=== PATIENT | male | born 1960 | race Caucasian/White ===

== ENCOUNTER 2020-04-18 02:57 | Inpatient (IN) | payer BC ==
[~2020-04-18] VITALS: Ht 175.3 cm; Wt 74.2 kg
[~2020-04-18 02:57] MED LIST: AMLO-187 PO; CIME400T PO; VALS1TAB22 PO
--- NOTE | 2020-04-18 03:20 | PHYS DOC ---
Past History Past Medical History: Hypertension Past Surgical History: No Surgical History Alcohol Use: Occasionally Drug Use: None Adult General Chief Complaint Chief Complaint: ABDOMINAL PAIN HPI HPI Patient is a 60-year-old male, with a past medical history significant for alcoholism and pancreatitis presents to the emergency department with 2 weeks of off-and-on lower abdominal pain, 8 out of 10 at worst, with no radiation, mild nausea with no emesis and associated with dark watery stools. States that all of his bowel movements, especially over the last few days have been like water. States that he quit drinking alcohol 2 weeks ago, and has had decrease in appetite as well. States over the last couple of days it has been bad with 5-6 episodes of black diarrhea a day. States he feels really fatigued but denies headache, chest pain, shortness of breath, dysuria, hematuria. Denies any numbness/weakness/tingling, confusion or slurred speech. Denies any recent travel, known ill contacts, fevers, sore throat/runny nose, cough. Review of Systems Review of Systems Review of systems otherwise unremarkable except noted in HPI Current Medications Current Medications Current Medications Medications (Trade) Dose Ordered Sig/Dyan Start Time Stop Time Status Last Admin Dose Admin Lactated Ringer's 1,000 ml @ 1,000 mls/hr 1X ONCE 04/18/20 03:30 04/18/20 04:29 Morphine Sulfate (Morphine 4mg Syringe) 4 mg 1X ONCE 04/18/20 03:30 04/18/20 03:31 Ondansetron HCl (Zofran) 4 mg 1X ONCE 04/18/20 03:30 04/18/20 03:31 Allergies Allergies Allergies Coded Allergies Type Severity Reaction Last Updated Verified iodine Allergy Severe Swelling 07/04/14 Yes ibuprofen Allergy Intermediate Swelling 07/04/14 Yes Physical Exam Physical Exam Constitutional: Well developed, well nourished, no acute distress, appears ill, diaphoretic and tacky HENT: Normocephalic, atraumatic, bilateral external ears normal, oropharynx moist, no oral exudates, nose normal. [] Eyes: PERRLA, conjunctiva normal, no discharge. [] Neck: Normal range of motion, no tenderness Cardiovascular:Heart rate regular rhythm, no murmur [] Lungs & Thorax: Bilateral breath sounds clear to auscultation [] Abdomen: soft, generalized tenderness, worse across lower abdomen, no guarding, some rebound tenderness, no masses, no pulsatile masses. [] Skin: Warm, sweaty, no erythema, no rash. [] Back: No tenderness, Extremities: No tenderness, no cyanosis, no clubbing, ROM intact, no edema. [] Neurologic: Alert and oriented X 3, normal motor function, normal sensory function, no focal deficits noted. [] Psychologic: Affect normal, judgement normal, mood normal. [] EKG EKG Rate of 95, QRS of 94, QTc of 473, no STEMI [] Radiology/Procedures Radiology/Procedures []IMPRESSION: Distended colon with areas of wall thickening and mucosal hyperemia, concerning for an infectious or inflammatory colitis. Electronically signed by: Bryson Chaves MD (04/18/2020 4:08 AM) [facility] Heart Score C/O Chest Pain: No Risk Factors: Risk Factors: DM, Current or recent (<one month) smoker, HTN, HLP, family history of CAD, obesity. Risk Scores: Risk Factors: DM, Current or recent (<one month) smoker, HTN, HLP, family history of CAD, obesity. Course & Med Decision Making Course & Med Decision Making Patient is a 60-year-old male with a past medical history of alcoholism, 2 weeks out from his last drink who presents with lower abdominal pain, and dark black diarrhea Vital signs with heart rate in the 90s, soft blood pressures at 94/50 after 1 liter resuscitation, respiratory rate in the low 20s satting 95% on room air. Patient looks ill. CT of the abdomen pelvis without contrast obtained due to patient's allergy significant air in the large bowel concerning for infectious versus inflammatory colitis. Blood cultures obtained. Started on Rocephin and Flagyl in the ED. Continued IV fluid resuscitation. Laboratory analysis notable for neutrophilic leukocytosis with bandemia, lactate of 4.4, hypochloremia, hypokalemia, hyponatremia Discussed all findings with family and recommended admission for continued evaluation and treatment. Family grateful, verbalized understanding and agreed with plan of admission. Dragon Disclaimer Dragon Disclaimer This electronic medical record was generated, in whole or in part, using a voice recognition dictation system. Departure Departure: Impression: Primary Impression: Abdominal pain Additional Impressions: Colitis Sepsis Lactic acidosis Disposition: ADMITTED INPT THIS HOSP Admitting Physician: Juliana Rivers Condition: IMPROVED Referrals: RASHAWN ALEXIS (PCP) Problem Qualifiers IVY SILVA MD Apr 18, 2020 03:20
[2020-04-18] MEDS ORDERED: MORPHINE SULFATE 4 MG/ML DISP.SYRIN. IV ONE (03:30)
[2020-04-18] MEDS ORDERED: IV RINGERS SOLUTION,LACTATED 1,000 ML IV ONE ×2 (03:30→04:30)
[2020-04-18] MEDS ORDERED: ONDANSETRON PF 4 MG/2 ML VIAL. IVP ONE (03:30)
--- NOTE | 2020-04-18 03:40 | EKG ---
[address] [address] Test Date: 2020-04-18 Test Time: 03:31:36 Pat Name: RAFAELA LEDESMA Department: Room: Gender: M [employer] Agent: JOEY : 1960 Requested By: IVY SILVA Order Number: [id number] Reading MD: Measurements Intervals [place] Rate: 95 P: 51 SC: 136 QRS: -9 QRSD: 94 T: 40 QT: 374 QTc: 473 Interpretive Statements SINUS RHYTHM LEFTWARD AXIS PROLONGED QT NO SPECIFIC ECG ABNORMALITIES RI6.02 Compared to ECG 04/18/2020 03:30:33 No significant changes
[2020-04-18 03:41] LABS: BASO % 0 % (0-3); EOS % 0 % (0-3); HEMATOCRIT 41.2 % (39.0-53.0); LYMPH # 0.5 x10^3/uL (1.0-4.8); LYMPH % 4 % (24-48); MEAN CORPUSCULAR HEMOGLOBIN 32 pg (25-35); MEAN CORPUSCULAR HGB CONC 34 g/dL (31-37); MEAN CORPUSCULAR VOLUME 94 fL (79-100); MONO % 0 % (0-9); NEUT # 12.8 x10^3uL (1.8-7.7); NEUT % 96 % (31-73); PLATELET COUNT 434 x10^3/uL (140-400); RED CELL DISTRIBUTION WIDTH 13.5 % (11.5-14.5); WHITE BLOOD COUNT 13.4 x10^3/uL (4.0-11.0)
[2020-04-18] MEDS ORDERED: PANTOPRAZOLE IV 40 MG VIAL. IVP ONE (04:00)
[2020-04-18 04:01] LABS: ALBUMIN 1.9 g/dL (3.4-5.0); ALBUMIN/GLOBULIN RATIO 0.5 (1.0-1.7); CALCIUM 7.9 mg/dL (8.5-10.1); GFR 41.2; TOTAL BILIRUBIN 0.8 mg/dL (0.2-1.0); TOTAL PROTEIN 6.1 g/dL (6.4-8.2)
--- NOTE | 2020-04-18 04:10 | RAD ---
CT ABDOMEN+PELVIS WO INDICATION: lower abdominal apain. H/O pancreatitis and GI bleed EXAM: Noncontrast CT of the abdomen and pelvis. Coronal and sagittal reformatted images were perform ed. PQRS compliance statement: One or more of the following individualized dose reduction techniques were utilized for this examinat ion: 1. Automated exposure control 2. Adjustment of the mA and/or kV according to patient size 3. Use of iterative reconstruction technique COMPARISON: 07/04/1949 FINDINGS: No free air, free fluid, or fluid collection. Lower chest: The visualized lower lungs are aerated. No pleural or pericardial effusion. ABDOMEN: Liver: The noncontrast liver is homogeneous in attenuation. Gallbladder and biliary: Normal gallbladder without radiopaque stone. Normal caliber bile ducts. Spleen: Normal spleen. Pancreas: The noncontrast pancreas is homogeneous in attenuation without peripancreatic inflammatory changes. Adrenal glands: Stable left adrenal thickening. Kidneys and ureters: No opaque urinary calculi. Normal kidneys and ureters. GI tract: Normal stomach. Normal caliber small bowel. Distention of the ascending and transverse colo n with wall thickening and mucosal hyperemia. Less pronounced wall thickening extends down through th e sigmoid. Vascular structures: Normal caliber abdominal aorta. Lymph nodes: No lymphadenopathy in the abdomen or pelvis. PELVIS: Genitourinary system: Normal bladder. SKELETAL STRUCTURES AND SOFT TISSUES: Degenerative changes of the spine. IMPRESSION: Distended colon with areas of wall thickening and mucosal hyperemia, concerning for an infectious or inflammatory colitis. Electronically signed by: Bryson Chaves MD (04/18/2020 4:08 AM) [facility]
[2020-04-18] MEDS ORDERED: PIPERACILLIN/TAZOBACTAM 4.5 GM in IV NORMAL SALINE 50ML 50 ML IV ONE (04:15)
[2020-04-18 04:17] LABS: % BANDS 34 % (0-9); % LYMPHS 1 % (24-48); % MONOS 4 % (0-10); % SEGS 61 % (35-66)
[2020-04-18 04:18] LABS: PLT ESTIMATE INCREASED (ADEQUATE)
[2020-04-18 04:22] LABS: CREATININE 1.7 mg/dL (0.7-1.3)
[2020-04-18] MEDS ORDERED: cefTRIAXone SODIUM 1 GM VIAL ONE (04:27)
[2020-04-18] MEDS ORDERED: IV NORMAL SALINE 50ML 50 ML ONE (04:27)
--- NOTE | 2020-04-18 05:30 | NUR ---
Admission Note: Pt transported via EMS from ED to ICU room 6, pt transferred from cart to bed independently, VSS, no c/o pain or n/v at this time, pt states "I just don't feel good". Pt oriented to room, call light, and safety precautions. Pt requested to be moved to a room w/a bathroom, adv pt we could discuss w/dayshift.
[2020-04-18 05:45] VITALS: BP 103/58
[2020-04-18] MEDS ORDERED: MORPHINE SULFATE 4 MG/ML DISP.SYRIN. ONE (09:32)
[2020-04-18] MEDS: MORPHINE SULFATE 4 MG/ML DISP.SYRIN. IV PRN ×4 (09:34→21:07)
[2020-04-18] MEDS: ONDANSETRON PF 4 MG/2 ML VIAL. IVP PRN ×4 (09:34→22:18)
[2020-04-18] MEDS: POTASSIUM CL 40MEQ IN 0.9%NACL 1,000 ML IV SCH ×2 (09:37→19:30)
[2020-04-18 11:00] VITALS: BP 98/61
[2020-04-18 13:49] LABS: BILIRUBIN,URINE NEG (NEG); CLARITY,URINE CLEAR; COLOR,URINE YELLOW; GLUCOSE,URINE NEG (NEG); NITRITE,URINE NEG (NEG); UROBILINOGEN,URINE 0.2 mg/dL (0.2 mg/dL)
[2020-04-18 13:59] LABS: BACTERIA,URINE 0 /HPF (0-FEW); RBC,URINE RARE /HPF (0-2); WBC,URINE 0 /HPF (0-4)
[2020-04-18 14:16] LABS: FECAL OB PT NEGATIVE (NEG)
[2020-04-18 14:57] LABS: CALCIUM 7.4 mg/dL (8.5-10.1); CREATININE 1.4 mg/dL (0.7-1.3); GFR 51.5
[2020-04-18 14:59] LABS: POTASSIUM 2.9 mmol/L (3.5-5.1)
[2020-04-18 15:00] VITALS: BP 104/59
[2020-04-18] MEDS ORDERED: POTASSIUM CHLORIDE 20 MEQ TABLET.ER. PO ONE (15:32)
[2020-04-18] MEDS: POTASSIUM CHLORIDE 20 MEQ TABLET.ER. PO SCH ×3 (15:55→18:37)
[2020-04-18] MEDS ORDERED: IV NORMAL SALINE 1,000ML 1,000 ML IV ONE (16:00)
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
[2020-04-18 19:00] VITALS: BP 93/60
[2020-04-18 20:22] LABS: CALCIUM 7.1 mg/dL (8.5-10.1); CREATININE 1.3 mg/dL (0.7-1.3); GFR 56.1; POTASSIUM 3.7 mmol/L (3.5-5.1)
[2020-04-19] MEDS: POTASSIUM CL 40MEQ IN 0.9%NACL 1,000 ML IV SCH ×2 (00:06→10:57)
[2020-04-19] MEDS: MORPHINE SULFATE 4 MG/ML DISP.SYRIN. IV PRN ×4 (01:25→17:03)
[2020-04-19] MEDS: ONDANSETRON PF 4 MG/2 ML VIAL. IVP PRN ×2 (05:57→11:52)
[2020-04-19 06:03] VITALS: BP 103/58
[2020-04-19 06:34] LABS: HEMATOCRIT 34.9 % (39.0-53.0); HEMOGLOBIN 11.7 g/dL (13.0-17.5); RED BLOOD COUNT 3.63 x10^6/uL (4.30-5.70); RED CELL DISTRIBUTION WIDTH 13.4 % (11.5-14.5); WHITE BLOOD COUNT 12.8 x10^3/uL (4.0-11.0)
[2020-04-19 06:54] LABS: ALBUMIN 1.4 g/dL (3.4-5.0); ALBUMIN/GLOBULIN RATIO 0.4 (1.0-1.7); CALCIUM 7.4 mg/dL (8.5-10.1); CREATININE 1.3 mg/dL (0.7-1.3); GFR 56.1; POTASSIUM 4.7 mmol/L (3.5-5.1); TOTAL BILIRUBIN 0.5 mg/dL (0.2-1.0); TOTAL PROTEIN 5.2 g/dL (6.4-8.2)
[2020-04-19] MEDS ORDERED: PANTOPRAZOLE 40 MG TABLET. PO SCH (07:30)
[2020-04-19] MEDS ORDERED: amLODIPine BESYLATE 10 MG TABLET PO SCH (09:00)
[2020-04-19 11:00] VITALS: BP 98/56
--- NOTE | 2020-04-19 14:18 | PN ---
DATE: 04/19/2020 SUBJECTIVE: The patient is resting, slightly propped up in bed, in no apparent distress. He continues to complain of abdominal cramping, has had diarrhea. He has had about 3 episodes of loose bowel movement since yesterday evening. Denied any fever, chills, or rigors. Denied any dizziness, lightheadedness, or vertigo. PHYSICAL EXAMINATION: GENERAL: When I examined him this afternoon, he definitely seemed to be more awake, alert, generally looks better. He looked pale, but no jaundice, cyanosis, or thyromegaly. No jugular venous distension. No limb edema. VITAL SIGNS: His heart rate was 85, blood pressure was 98/56, temperature was 98.5, respiratory rate was 17, and oxygen saturation was 95%. HEAD, EYES, EARS, NOSE, AND THROAT: Showed normocephalic, atraumatic. NECK: Supple. HEART: Showed normal first and second heart sounds. No gallop or murmur. CHEST: Showed central trachea. Equal bilateral chest expansion, air entry, vesicular sounds. No crepitation and no rhonchi. ABDOMEN: Markedly distended. Tenderness mostly in the right epigastric and right upper quadrant as well as right flank area. There is no guarding or rigidity. No organomegaly. All hernial orifice intact. Bowel sounds normal. NEUROLOGIC: He is awake, alert, responding appropriately. All cranial nerves are intact. He moves extremities without difficulty. His intake was 2100, no output was recorded. LABORATORY DATA: As of this morning, his white cell count was 12,800, hemoglobin 11.7, hematocrit 34, MCV 96, and platelet count 220,000. His serum sodium was 133, potassium 4.7, chloride 104, bicarbonate 19, and anion gap of 10, BUN 28, creatinine 1.3, estimated GFR was 56 mL per minute. His glucose 122, calcium was 7.4, magnesium 2. Total bilirubin, AST, ALT, and alkaline phosphatase were normal. His total protein was 5.2, albumin was 1.4. His stool for occult blood was negative. His blood cultures are so far negative. ASSESSMENT: Likely infectious versus inflammatory colitis. PLAN: Plan is to continue with IV Levaquin and IV Flagyl. His hypokalemia has resolved. His stool for occult blood was negative; however, the enteric panel was still pending at the time of this dictation. The patient continued to have pain, diarrhea, and his abdomen seemed to be more distended and given that the distention of the ascending and transverse colon with wall thickness and mucosal hyperemia, there is less pronounced wall thickening that extends down through the sigmoid, I will arrange to repeat his CT scan of the abdomen and pelvis; and depending on the finding, we might transfer him to [facility] to get the Gastroenterology on board in case this is an inflammatory bowel disease rather than infectious colitis. NEO RAMOS MD DR: ROSALIO/ralph JOB#: [id number] / [id number]
--- NOTE | 2020-04-19 14:46 | RAD ---
EXAM: Abdomen and pelvis CT without intravenous contrast. HISTORY: Pain and distention. TECHNIQUE: Computed tomographic images of the abdomen and pelvis were obtained without contrast. Mult iplanar reformatting was performed. *One or more of the following individualized dose reduction techniques were utilized for this examina tion: 1. Automated exposure control. 2. Adjustment of the mA and/or kV according to patient size. 3. Use of iterative reconstruction technique. COMPARISON: 04/18/2020. FINDINGS: Evaluation of the lower thorax demonstrates new trace bilateral pleural effusions. There is partial medial right lower lobe consolidation with air bronchograms. The superimposed on bilateral b asilar atelectasis and suspected interstitial infiltrate. There is also lingular atelectasis or inter stitial infiltrate. There is stable trace pericardial fluid. There is left gynecomastia. No hepatic lesion is seen. The gallbladder, pancreas, spleen and stomach are unremarkable. There is d iffuse thickening of the left adrenal gland, without a discrete nodule. There is no nephrolithiasis o r hydronephrosis. There is no appendicitis. There has been interval increase in a distended air and f luid-filled colon and circumferential colonic wall thickening with pericolonic stranding. There is re lative decompression of the sigmoid colon and rectum. There is no pneumatosis. The aorta is normal in caliber. There are stable nonspecific mesenteric and retroperitoneal lymph nod es. There is no suspicious osseous lesion. There is a small sebaceous cyst within the right buttock. IMPRESSION: 1. Increase in distended air and fluid-filled colon with superimposed circumferential colonic wall th ickening and pericolonic stranding due to acute colitis. The differential includes infectious and inf lammatory etiologies. No obstruction or pneumatosis seen. 2. New partially consolidated right lower lobe infiltrate superimposed on bilateral lower lobe shows infiltrate, atelectasis and trace pleural effusions. Electronically signed by: Quin Cabral MD (04/19/2020 2:44 PM) [id number]
[2020-04-19 15:00] VITALS: BP 96/54
--- NOTE | 2020-04-19 19:28 | NUR ---
POST CT SCAN DR RAMOS RECOMMENDED THE PATIENT BE TRANSFERRED TO [facility] FOR FURTHER EVALUATION. PATIENT NEEDS A GI CONSULT DUE TO WORSENING CT SCAN RESULTS. PATIENT WAS IN AGREEMENT TO TRANSFER. PATIENT WILL BE TRANSFERRED TO ROOM 663. REPORT WAS CALLED TO MATT MULLEN. EMS WAS CALLED. EMS ARRIVED TO THE UNIT AND PATIENT LEFT THE UNIT VIA GURNEY ESCORTED BY EMS PERSONNEL.
== END 2020-04-19 18:30 | disposition short-term general hospital (02) | DRG 872 ==
LOC: ER 02:57 → ICU 04:42
PROVIDERS: ADMIT Internal Medicine; ATTEND Internal Medicine
DX: A41.9 Sepsis, unspecified organism (principal); E87.1 Hypo-osmolality and hyponatremia; N17.9 Acute kidney failure, unspecified; E86.0 Dehydration; F17.200 Nicotine dependence, unspecified, uncomplicated; I10 Essential (primary) hypertension; K52.9 Noninfective gastroenteritis and colitis, unspecified; Z80.8 Family history of malignant neoplasm of other organs or systems; Z82.49 Family history of ischemic heart disease and other diseases of the circulatory system; F10.20 Alcohol dependence, uncomplicated; K21.9 Gastro-esophageal reflux disease without esophagitis; Z88.8 Allergy status to other drugs, medicaments and biological substances; E87.6 Hypokalemia
CPT/HCPCS: 36415; 74176; 80048; 80053; 81001; 82274; 83605; 83690; 83735; 84484; 85007; 85025; 85027; 85610; 86850; 86900; 86901; 87040; 87505; 93005; 96361; 96365; 96368; 96375; C9113; J0696; J1956; J2270; J2405; J3490; J7120; 99285-25; J7030

== ENCOUNTER 2020-09-06 10:41 | Emergency (ER) | payer OTHER, BC ==
[~2020-09-06] VITALS: Ht 175.3 cm; Wt 60.2 kg
[~2020-09-06 10:41] MED LIST changes: -VALS1TAB22 PO; +VALS1TAB23 PO
[2020-09-06 10:52] VITALS: BP 153/103
[2020-09-06] MEDS ORDERED: ACETAMINOPHEN 325 MG TABLET PO ONE (11:00)
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
== END 2020-09-06 12:08 | disposition home or self-care (01) ==
LOC: ER 10:41
DX: M54.5 Low back pain (principal); M54.6 Pain in thoracic spine; M79.652 Pain in left thigh; M25.561 Pain in right knee; I10 Essential (primary) hypertension; F10.20 Alcohol dependence, uncomplicated; Z88.6 Allergy status to analgesic agent; Z88.8 Allergy status to other drugs, medicaments and biological substances; Y90.9 Presence of alcohol in blood, level not specified
CPT/HCPCS: 72072; 72100; 73552; 73562; 99284

== ENCOUNTER 2021-04-18 10:07 | Emergency (ER) | payer BC, OTHER ==
[~2021-04-18] VITALS: Ht 175.3 cm; Wt 59.0 kg
[2021-04-18] MEDS: IV NORMAL SALINE 1,000ML 1,000 ML IV ONE (11:15)
[2021-04-18] MEDS: ACETAMINOPHEN 500 MG TABLET PO ONE (11:15)
--- NOTE | 2021-04-18 11:21 | EKG ---
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
[2021-04-18] MEDS ORDERED: IOHEXOL 240 MG/ML 50ML VIAL. PO ONE (11:30)
[2021-04-18] MEDS ORDERED: IOHEXOL 300 MG/ML 75 ML VIAL. IV ONE (11:30)
[2021-04-18 11:38] LABS: BASO % 1 % (0-3); EOS % 0 % (0-3); HEMATOCRIT 34.9 % (39.0-53.0); HEMOGLOBIN 12.6 g/dL (13.0-17.5); LYMPH # 0.8 x10^3/uL (1.0-4.8); LYMPH % 14 % (24-48); MEAN CORPUSCULAR HEMOGLOBIN 33 pg (25-35); MEAN CORPUSCULAR HGB CONC 36 g/dL (31-37); MEAN CORPUSCULAR VOLUME 93 fL (79-100); MONO # 0.9 x10^3/uL (0.0-1.1); MONO % 15 % (0-9); NEUT # 4.1 x10^3uL (1.8-7.7); NEUT % 71 % (31-73); PLATELET COUNT 291 x10^3/uL (140-400); RED BLOOD COUNT 3.77 x10^6/uL (4.30-5.70); RED CELL DISTRIBUTION WIDTH 13.4 % (11.5-14.5); WHITE BLOOD COUNT 5.8 x10^3/uL (4.0-11.0)
[2021-04-18 12:41] LABS: ALBUMIN 3.9 g/dL (3.4-5.0); ALBUMIN/GLOBULIN RATIO 1.1 (1.0-1.7); CALCIUM 9.1 mg/dL (8.5-10.1); GFR 75.7; TOTAL BILIRUBIN 1.3 mg/dL (0.2-1.0); TOTAL PROTEIN 7.3 g/dL (6.4-8.2)
--- NOTE | 2021-04-18 12:51 | RAD ---
PQRS Compliance Statement: One or more of the following individualized dose reduction techniques were utilized for this examinat ion: 1. Automated exposure control 2. Adjustment of the mA and/or kV according to patient size 3. Use of iterative reconstruction technique CT ABDOMEN+PELVIS WO Clinical Indication: Reason: generalized abd pain, h/o ileostomy / Spl. Instructions: PT HAS IODINE A LLERGY, HAVE PT DRINK H2O, PER ER MD / History: Comparison: CT abdomen and pelvis without contrast April 19, 2020. Findings: Minimal bilateral dependent atelectasis. Small pericardial effusion. Coronary artery disease. Cardiac size is normal. Mild right inferior perihepatic ascites. The liver, gallbladder, spleen, and pancreas are normal. The re is adrenal gland hyperplasia, severe on the left. Mild calcification of the abdominal aorta, no an eurysm. There is a 2 mm nonobstructing right renal calculus. No hydronephrosis is seen. Since the prior study there has been subtotal colectomy. There is right lower abdomen ileostomy. The configuration of the stomach has changed, probably due to the altered anatomy. There is no gastric wa ll thickening. Several small bowel loops are mildly dilated and fluid-filled. There are small bowel l oops in the upper pelvis that are fluid-filled, demonstrate feces sign, and are thick-walled. There i s mild surrounding free fluid, image 96. No point of transition is identified. There is swirling of m esenteric vessels in the left midabdomen, images 41-60. There is mild induration of the mesentery. There is Michael pouch. The pouch appears thick-walled, is not well distended. There are multiple mi ldly enlarged and upper limits of normal in size mesorectal lymph nodes. The lymph nodes are new from prior study. The urinary bladder is normal. Prostate size upper limits of normal. Diffuse demineralization. Degenerative endplate spurring of the thoracolumbar spine. There is a right gluteal probable sebaceous cyst, increased in size. IMPRESSION: 1. Interval colon resection and right lower quadrant ileostomy. Several small bowel loops are fluid- filled and mildly dilated. There is a small bowel loop in the upper pelvis that is thick-walled and d emonstrates feces sign. A point of transition is not identified to suggest high-grade obstruction. Th ere is some swirling of mesenteric vessels in the left midabdomen. Differential considerations includ e enteritis, partial small bowel obstruction, ileus, or internal hernia. 2. There is mild free fluid in the pelvis and along the right paracolic gutter. 3. Small pericardial effusion. 4. There is mesorectal adenopathy. 5. Cannot occlude proctitis of the Em pouch. Electronically signed by: Justen Patel MD (04/18/2021 12:48 PM) [id number]
--- NOTE | 2021-04-18 14:31 | PHYS DOC ---
Past History Past Medical History: Alcoholism, Hypertension, Pancreatitis, Other Additional Past Medical Histor: Quit smoking Feb 2021, colitis, headache Past Surgical History: Other Additional Past Surgical Histo: Left ankle & left wrist surgery, ileostomy April 2020. Alcohol Use: Sober Drug Use: None Adult General Chief Complaint Chief Complaint: ABDOMINAL PAIN HPI HPI The patient is a 61-year-old male with a history of partial colectomy and ileostomy due to a colitis couple of years ago at [facility]. He presents for evaluation of mild lower abdominal discomfort, intermittent nausea and change in ostomy output over the past 3 days or so. Discomfort is intermittent and is not severe but patient was concerned about a bowel blockage and decided to come in for evaluation. He denies associated fevers, vomiting, upper respiratory congestion/rhinorrhea, cough, sore throat, shortness of breath or chest pain of any kind, flank pain, midline back pain, dysuria, hematuria, polyuria or oliguria, pain or swelling to arms or legs. Patient is alert and pleasantly appropriately interactive and in no acute distress with appropriate vital signs upon initial evaluation here in the emergency department. Review of Systems Review of Systems A 12 point review of systems was completed and was negative except where noted in HPI above. Current Medications Current Medications Current Medications Medications (Trade) Dose Ordered Sig/Dyan Start Time Stop Time Status Last Admin Dose Admin Acetaminophen (Tylenol) 1,000 mg 1X ONCE 04/18/21 11:15 04/18/21 11:16 DC Iohexol (Omnipaque 240 Mg/ml) 50 ml 1X ONCE 04/18/21 11:30 04/18/21 11:31 UNV Iohexol (Omnipaque 300 Mg/ml) 75 ml 1X ONCE 04/18/21 11:30 04/18/21 11:31 UNV Lorazepam (Ativan Inj) 1 mg 1X ONCE 04/18/21 11:15 04/18/21 11:16 DC Sodium Chloride 1,000 ml @ 1,000 mls/hr 1X ONCE 04/18/21 11:15 04/18/21 12:14 DC Allergies Allergies Allergies Coded Allergies Type Severity Reaction Last Updated Verified iodine Allergy Severe Swelling 07/04/14 Yes ibuprofen Allergy Intermediate Swelling 07/04/14 Yes Physical Exam Physical Exam 61-year-old male appearing nontoxic and in no acute distress. Head is normocephalic and atraumatic. Neck is supple and nontender. Oropharynx is moist. Lungs are clear to auscultation at all stations. There is a normal S1 and S2 without rubs or gallops and capillary refill is appropriate, less than 2 seconds globally. Abdomen is soft, nontender and nondistended. Ileostomy in place to the right lower quadrant with modest amount of soft brown stool in the bag. Skin is warm and dry without cyanosis, clubbing or edema. Psychiatrically, the patient demonstrates appropriate mood and affect and is alert. Bilateral upper and lower extremities are neurovascularly intact distally with strength out of 5, sensation intact light touch in all nerve distributions, radial, DP and PT pulses 2+ equal bilaterally, capillary refill less than 2 seconds, hands and feet warm and well-perfused. No dependent peripheral edema distally. No calf tenderness or swelling bilaterally. Homans test is negative bilaterally. Current Patient Data Vital Signs Vital Signs Date Time Temp Pulse Resp B/P (MAP) Pulse Ox O2 Delivery O2 Flow Rate FiO2 04/18/21 13:08 57 16 108/67 (81) 100 Room Air 04/18/21 10:28 98.4 Lab Results Laboratory Tests Test 04/18/21 11:20 White Blood Count 5.8 x10^3/uL (4.0-11.0) Red Blood Count 3.77 x10^6/uL (4.30-5.70) L Hemoglobin 12.6 g/dL (13.0-17.5) L Hematocrit 34.9 % (39.0-53.0) L Mean Corpuscular Volume 93 fL (79-100) Mean Corpuscular Hemoglobin 33 pg (25-35) Mean Corpuscular Hemoglobin Concent 36 g/dL (31-37) Red Cell Distribution Width 13.4 % (11.5-14.5) Platelet Count 291 x10^3/uL (140-400) Neutrophils (%) (Auto) 71 % (31-73) Lymphocytes (%) (Auto) 14 % (24-48) L Monocytes (%) (Auto) 15 % (0-9) H Eosinophils (%) (Auto) 0 % (0-3) Basophils (%) (Auto) 1 % (0-3) Neutrophils # (Auto) 4.1 x10^3uL (1.8-7.7) Lymphocytes # (Auto) 0.8 x10^3/uL (1.0-4.8) L Monocytes # (Auto) 0.9 x10^3/uL (0.0-1.1) Eosinophils # (Auto) 0.0 x10^3/uL (0.0-0.7) Basophils # (Auto) 0.0 x10^3/uL (0.0-0.2) Sodium Level 113 mmol/L (136-145) *L Potassium Level 5.0 mmol/L (3.5-5.1) Chloride Level 82 mmol/L (98-107) L Carbon Dioxide Level 23 mmol/L (21-32) Anion Gap 8 (6-14) Blood Urea Nitrogen 10 mg/dL (8-26) Creatinine 1.0 mg/dL (0.7-1.3) Estimated GFR (Cockcroft-Gault) 75.7 BUN/Creatinine Ratio 10 (6-20) Glucose Level 91 mg/dL (70-99) Lactic Acid Level 1.3 mmol/L (0.4-2.0) Calcium Level 9.1 mg/dL (8.5-10.1) Total Bilirubin 1.3 mg/dL (0.2-1.0) H Aspartate Amino Transferase (AST) 25 U/L (15-37) Alanine Aminotransferase (ALT) 25 U/L (16-63) Alkaline Phosphatase 69 U/L (46-116) Troponin I High Sensitivity 10 ng/L (4-75) Total Protein 7.3 g/dL (6.4-8.2) Albumin 3.9 g/dL (3.4-5.0) Albumin/Globulin Ratio 1.1 (1.0-1.7) Lipase 48 U/L (73-393) L EKG EKG Sinus rhythm, rate 65, no acute ST elevation or depression, MT 174, QRS 92, QTc 400, EP interpretation. Nonischemic tracing, intervals appropriate. Radiology/Procedures Radiology/Procedures CT ABDOMEN+PELVIS WO Clinical Indication: Reason: generalized abd pain, h/o ileostomy / Spl. Instructions: PT HAS IODINE ALLERGY, HAVE PT DRINK H2O, PER ER MD / History: Comparison: CT abdomen and pelvis without contrast April 19, 2020. Findings: Minimal bilateral dependent atelectasis. Small pericardial effusion. Coronary artery disease. Cardiac size is normal. Mild right inferior perihepatic ascites. The liver, gallbladder, spleen, and pancreas are normal. There is adrenal gland hyperplasia, severe on the left. Mild calcification of the abdominal aorta, no aneurysm. There is a 2 mm nonobstructing right renal calculus. No hydronephrosis is seen. Since the prior study there has been subtotal colectomy. There is right lower abdomen ileostomy. The configuration of the stomach has changed, probably due to the altered anatomy. There is no gastric wall thickening. Several small bowel loops are mildly dilated and fluid-filled. There are small bowel loops in the upper pelvis that are fluid-filled, demonstrate feces sign, and are thick- walled. There is mild surrounding free fluid, image 96. No point of transition is identified. There is swirling of mesenteric vessels in the left midabdomen, images 41-60. There is mild induration of the mesentery. There is Michael pouch. The pouch appears thick-walled, is not well distended. There are multiple mildly enlarged and upper limits of normal in size mesorectal lymph nodes. The lymph nodes are new from prior study. The urinary bladder is normal. Prostate size upper limits of normal. Diffuse demineralization. Degenerative endplate spurring of the thoracolumbar spine. There is a right gluteal probable sebaceous cyst, increased in size. IMPRESSION: 1. Interval colon resection and right lower quadrant ileostomy. Several small bowel loops are fluid-filled and mildly dilated. There is a small bowel loop in the upper pelvis that is thick-walled and demonstrates feces sign. A point of transition is not identified to suggest high-grade obstruction. There is some swirling of mesenteric vessels in the left midabdomen. Differential considerati ons include enteritis, partial small bowel obstruction, ileus, or internal hernia. 2. There is mild free fluid in the pelvis and along the right paracolic gutter. 3. Small pericardial effusion. 4. There is mesorectal adenopathy. 5. Cannot occlude proctitis of the Em pouch. Electronically signed by: Justen Patel MD (04/18/2021 12:48 PM) [id number] DICTATED AND SIGNED BY: JUSTEN PATEL MD DATE: 04/18/21 3001 CC: GAMA MCDONOUGH MD; SYLVIE DICKINSON MD ~MTH0 0 [] Heart Score C/O Chest Pain: No Risk Factors: Risk Factors: DM, Current or recent (<one month) smoker, HTN, HLP, family history of CAD, obesity. Risk Scores: Risk Factors: DM, Current or recent (<one month) smoker, HTN, HLP, family history of CAD, obesity. Course & Med Decision Making Course & Med Decision Making Labs and imaging as above, remarkable primarily for marked hyponatremia, essentially asymptomatic and probably somewhat subacute. CT imaging with multiple abnormalities without clear evidence of an acute surgical process; will need general surgical consultation for best determination as to next steps with respect to abdominal discomfort. Patient and initially reluctant to be admitted to the hospital for correction of hyponatremia after further exploration of the etiology of its cause, and for attention from the general surgeon for abdominal discomfort and CT findings. Will need nephrology and general surgical consultation, neither of which are available here. After extended conversation, they are agreeable to [facility] transfer (they do not want to go to [place] or any other [facility]). Graciously excepted in transfer to that facility for admission by Dr. Quiroga. Critical care time was 48 minutes for severe hyponatremia. Dragon Disclaimer Dragon Disclaimer This electronic medical record was generated, in whole or in part, using a voice recognition dictation system. Departure Departure: Impression: Primary Impression: Acute hyponatremia Additional Impression: Generalized abdominal pain Disposition: 02 SHORT TERM HOSPITAL Condition: GUARDED Referrals: SYLVIE DICKINSON MD (PCP) Problem Qualifiers GAMA MCDONOUGH MD Apr 18, 2021 14:31
[2021-04-18 14:49] LABS: BACTERIA,URINE 0 /HPF (0-FEW); CLARITY,URINE CLEAR; COLOR,URINE YELLOW; GLUCOSE,URINE NEG (NEG); NITRITE,URINE NEG (NEG); RBC,URINE 0 /HPF (0-2); UROBILINOGEN,URINE 0.2 mg/dL (0.2 mg/dL); WBC,URINE 0 /HPF (0-4)
[2021-04-18 15:50] VITALS: BP 146/87
--- NOTE | 2021-04-21 11:01 | NUR ---
CALLED PT TO NOTIFY OF COVID RESULTS. NO ANSWER. MESSAGE LEFT
== END 2021-04-18 18:17 | disposition short-term general hospital (02) ==
LOC: ER 10:07
DX: E87.1 Hypo-osmolality and hyponatremia (principal); R10.84 Generalized abdominal pain; F10.20 Alcohol dependence, uncomplicated; I10 Essential (primary) hypertension; Z90.49 Acquired absence of other specified parts of digestive tract; Z88.8 Allergy status to other drugs, medicaments and biological substances; Y90.9 Presence of alcohol in blood, level not specified
CPT/HCPCS: 36415; 74176; 80053; 81001; 83605; 83690; 84484; 85025; 93005; 99291-25